=== PATIENT | male | born 1960 | race Caucasian/White ===

== ENCOUNTER 2025-04-07 09:16 | Outpatient (CLI) | payer BC | END 2025-04-07 09:17 | disposition home or self-care (01) | LOC: CSHSLEEP 09:16 | PROVIDERS: ATTEND Family Medicine | DX: G47.33 Obstructive sleep apnea (adult) (pediatric) (principal); R53.83 Other fatigue; R06.83 Snoring; I25.10 Atherosclerotic heart disease of native coronary artery without angina pectoris | CPT/HCPCS: 95810 ==